=== PATIENT | female | born 1970 | race Caucasian/White ===

== ENCOUNTER → 2020-07-21 | Day surgery (SDC) | payer BC ==
[~2020-07-21] MED LIST: BARIATRIC MV-I1 EACH PO; BIOTIN10000 MCG PO; CALCET TABLET1 EACH PO; FENTANYL CITRATE/PF 100MCG/2 ML INJ ONE; FERROUS FUMARA324 MG PO; LIDOCAINE HCL 2% LOCAL INJ 5 ML SDV VIAL INJ ONE; METOCLOPRAMIDE HCL 10 MG/2ML VIAL ONE; MIDAZOLAM HCL 2 MG/2 ML VIAL ONE; NEXIUM40 MG PO; PANTOPRAZOLE 40 MG 10ML VIAL ONE; PEPCID20 MG PO; PROPOFOL IV EMULSION 10 MG/ML 20 ML VIAL ONE; SODIUM CHLORIDE 0.9% 50ML 50 ML ONE; VITAMIN B-121000 MC2 SL; VITAMIN C1000 M2 PO; VITAMIN C1000 MG PEG
[2020-07-21 09:50] VITALS: BP 118/91
--- NOTE | 2020-07-21 10:53 | Operative Report ---
DATE OF PROCEDURE: 07/21/2020 SURGEON: Felix Meraz MD PROCEDURE: EGD with biopsies. INDICATIONS FOR PROCEDURE: Acid reflux, bloating. MEDICATIONS: The patient was done under MAC, please see anesthesiologist's note. PROCEDURE IN DETAIL: With the patient in left lateral decubitus position, a flexible fiberoptic Olympus gastroscope was introduced into the esophagus under direct visualization without any difficulty. There was some patchy erythema noted in distal esophagus. The scope was then advanced with ease into the stomach and the patient appears to be status post gastric sleeve. There were some diffuse erythema and moderate edema noted in the body and antrum, and biopsies were obtained and sent to stain for H. pylori. Pylorus was of normal contour and shape, it was intubated with ease and the scope was advanced all the way to the second portion of the duodenum. Biopsies were obtained from the proximal second portion and the duodenal bulb to rule out sprue. The scope was then withdrawn back into the stomach and retroflexed, and some postoperative changes were noted. The scope was then straightened out, it was subsequently withdrawn. The patient tolerated the procedure well. IMPRESSION: 1. Distal esophagitis, mild. 2. Status post gastric sleeve. 3. Gastritis, biopsied, biopsies sent to stain for H. pylori. 4. Rule out sprue. PLAN: 1. Followup histology. 2. Continue Nexium 40 mg one p.o. a.c. b.i.d., add Carafate 1 g p.o. a.c. t.i.d. and at bedtime. Felix Meraz MD [facility] [place] [place] /[id number] cc: Denis Lee DO
== END | disposition home or self-care (01) ==
LOC: OR 08:08
PROVIDERS: ATTEND Internal Medicine Gastroenterology
DX: K21.9 Gastro-esophageal reflux disease without esophagitis (principal); K29.70 Gastritis, unspecified, without bleeding; K20.9 Esophagitis, unspecified; K44.9 Diaphragmatic hernia without obstruction or gangrene; Z98.84 Bariatric surgery status; E78.5 Hyperlipidemia, unspecified; F41.9 Anxiety disorder, unspecified; Z01.810 Encounter for preprocedural cardiovascular examination; Z01.812 Encounter for preprocedural laboratory examination; Z11.59 Encounter for screening for other viral diseases; Z68.30 Body mass index [BMI] 30.0-30.9, adult
CPT/HCPCS: 43239; 81025; C9113; J2001; J2250; J2704; J2765; J3010; U0002

== ENCOUNTER → 2022-05-24 | Day surgery (SDC) | payer BC ==
[~2022-05-24] MED LIST changes: +B12 ACTIVE1000 MCG; +GLUCAGON FOR INJ 1 MG VIAL ONE; +HYOSCYAMINE SULFATE 0.5 MG/ML INJ ONE; -METOCLOPRAMIDE HCL 10 MG/2ML VIAL ONE; -PANTOPRAZOLE 40 MG 10ML VIAL ONE; -SODIUM CHLORIDE 0.9% 50ML 50 ML ONE
[2022-05-24 19:05] VITALS: BP 119/76
== END | disposition home or self-care (01) ==
LOC: OR 01:50
PROVIDERS: ATTEND Internal Medicine Gastroenterology
DX: Z12.11 Encounter for screening for malignant neoplasm of colon (principal); K63.5 Polyp of colon; K64.8 Other hemorrhoids; K21.9 Gastro-esophageal reflux disease without esophagitis; Z71.3 Dietary counseling and surveillance; Z98.84 Bariatric surgery status; E03.9 Hypothyroidism, unspecified; R06.02 Shortness of breath; F41.9 Anxiety disorder, unspecified; Z01.810 Encounter for preprocedural cardiovascular examination; Z01.812 Encounter for preprocedural laboratory examination; Z20.822 Contact with and (suspected) exposure to COVID-19; Z68.31 Body mass index [BMI] 31.0-31.9, adult; Z86.16 Personal history of COVID-19
CPT/HCPCS: 0223U; 36415; 45378; 81025; 93005; J1610; J1980; J2001; J2250; J3010

== ENCOUNTER → 2022-08-06 | Outpatient (CLI) | payer BC ==
[~2022-08-06] MED LIST changes: -B12 ACTIVE1000 MCG; +B12 ACTIVE1000 MCG PO; +CENTRUM SILVER1 EAC5 PO; -FENTANYL CITRATE/PF 100MCG/2 ML INJ ONE; +GARLIQUE PO; -GLUCAGON FOR INJ 1 MG VIAL ONE; -HYOSCYAMINE SULFATE 0.5 MG/ML INJ ONE; +IOPAMIDOL 370 MG/ML 100 ML INFUS..BTL INJ ONE; -LIDOCAINE HCL 2% LOCAL INJ 5 ML SDV VIAL INJ ONE; -MIDAZOLAM HCL 2 MG/2 ML VIAL ONE; +POTASSIUM GLUCO90 MG PO; -PROPOFOL IV EMULSION 10 MG/ML 20 ML VIAL ONE; +SUCRALFATE1 GM PO; +TURMERIC500 M1 PO; +VITAMIN B-121000 MCG PO; +VITAMIN D3 COM1 EACH PO; +VITAMIN E400 UNI1 PO; +ZINC PO
== END ==
LOC: CT 08:05
PROVIDERS: ATTEND Internal Medicine Gastroenterology
DX: R22.1 Localized swelling, mass and lump, neck (principal); R10.10 Upper abdominal pain, unspecified; K21.9 Gastro-esophageal reflux disease without esophagitis; K92.1 Melena; K29.60 Other gastritis without bleeding; R19.8 Other specified symptoms and signs involving the digestive system and abdomen
CPT/HCPCS: 70491; 76700; Q9967

== ENCOUNTER → 2022-08-11 | Day surgery (SDC) | payer BC ==
[~2022-08-11] MED LIST changes: -IOPAMIDOL 370 MG/ML 100 ML INFUS..BTL INJ ONE; +LIDOCAINE HCL 2% LOCAL INJ 5 ML SDV VIAL INJ ONE; +PROPOFOL IV EMULSION 10 MG/ML 20 ML VIAL ONE
[2022-08-11 15:11] VITALS: BP 128/86
== END | disposition home or self-care (01) ==
LOC: OR 11:30
PROVIDERS: ATTEND Internal Medicine Gastroenterology
DX: K21.9 Gastro-esophageal reflux disease without esophagitis (principal); K29.60 Other gastritis without bleeding; Z98.84 Bariatric surgery status; R13.10 Dysphagia, unspecified; R19.7 Diarrhea, unspecified; Z71.3 Dietary counseling and surveillance; E03.9 Hypothyroidism, unspecified; E66.9 Obesity, unspecified; R22.1 Localized swelling, mass and lump, neck; Z68.31 Body mass index [BMI] 31.0-31.9, adult; Z86.16 Personal history of COVID-19
CPT/HCPCS: 43239; 43450; 81025; C9113; J2001; J2704; 43235

== ENCOUNTER → 2022-11-29 | Day surgery (SDC) | payer BC ==
[2022-11-25 09:12] LABS: BASOPHILS # (AUTO) 0.1 (0.0-0.1); BASOPHILS % 0.9 % (0.0-1.0); EOSINOPHILS # (AUTO) 0.2 (0.0-0.4); EOSINOPHILS % 3.6 % (0.0-6.0); HEMATOCRIT 43.4 % (34.2-44.1); HEMOGLOBIN 13.8 g/dL (12.0-16.0); LYMPHOCYTES # (AUTO) 1.8 (1.0-3.2); LYMPHOCYTES % 26.5 % (18.0-39.1); MEAN CORPUSCULAR HEMOGLOBIN 32.9 pg (28-32); MEAN CORPUSCULAR HGB CONC 31.8 g/dL (31-35); MEAN CORPUSCULAR VOLUME 103.3 fL (81-99); MONOCYTES # (AUTO) 0.8 (0.2-0.8); MONOCYTES % 11.8 % (4.4-11.3); NEUTROPHILS # (AUTO) 3.8 (2.1-6.9); PLATELET COUNT 271 x10e3/uL (140-360); RED CELL DISTRIBUTION WIDTH 12.6 % (11.7-14.4)
[2022-11-25 09:36] LABS: ALBUMIN 3.8 g/dL (3.5-5.0); ALBUMIN/GLOBULIN RATIO 1.2 (0.8-2.0); ANION GAP 15.2 mmol/L (8-16); CALCIUM 9.2 mg/dL (8.4-10.2); CREATININE, SERUM 0.8 mg/dL (0.57-1.11); POTASSIUM 4.2 mmol/L (3.5-5.1)
[~2022-11-29] MED LIST changes: +BUPIVACAINE HCL 0.5% INJ 30 ML VIAL INJ ONE; +DEXAMETHASONE SOD PHOS INJ 4 MG/ML SDV ONE; +EPHEDRINE SULFATE INJ 50 MG/ML VIAL ONE; +FENTANYL CITRATE/PF 100MCG/2 ML INJ ONE; +GLYCOPYRROLATE INJ 0.2 MG/ML VIAL ONE; +KETOROLAC TROMETHAMINE 30 MG/ML VIAL ONE; +MIDAZOLAM HCL 2 MG/2 ML VIAL ONE; +Morphine 10mg syringe 10 MG/ML INJ ONE; +NEOSTIGMINE 1 MG/ML 10ML VIAL ONE; +ONDANSETRON HCL INJ 2MG/ML 2ML 2 MG/ML VIAL ONE; +POVIDONE IODINE 0.05% 0.05 % ML PO ONE; +ROCURONIUM BROMIDE 10 MG/ML 5ML VIAL IV ONE; +VITAMIN D330 ML PO
[2022-11-29 12:35] VITALS: BP 109/67
== END | disposition home or self-care (01) ==
LOC: OR 08:04
PROVIDERS: ATTEND Surgery
DX: K80.10 Calculus of gallbladder with chronic cholecystitis without obstruction (principal); I10 Essential (primary) hypertension; K21.9 Gastro-esophageal reflux disease without esophagitis; Z20.822 Contact with and (suspected) exposure to COVID-19; Z01.810 Encounter for preprocedural cardiovascular examination; Z01.812 Encounter for preprocedural laboratory examination
CPT/HCPCS: 0223U; 36415 ×2; 47562; 80053; 81025; 85025; 88304; 93005; C1766; J0690; J1100; J1885; J2001; J2250; J2270; J2405; J2704; J2710; J3010

== ENCOUNTER → 2024-05-28 | Day surgery (SDC) | payer BC ==
[~2024-05-28] MED LIST changes: +ALIGN4 MG PO; -BUPIVACAINE HCL 0.5% INJ 30 ML VIAL INJ ONE; +COLESTIPOL HCL1 GM PO; -DEXAMETHASONE SOD PHOS INJ 4 MG/ML SDV ONE; -EPHEDRINE SULFATE INJ 50 MG/ML VIAL ONE; -FENTANYL CITRATE/PF 100MCG/2 ML INJ ONE; -GLYCOPYRROLATE INJ 0.2 MG/ML VIAL ONE; -KETOROLAC TROMETHAMINE 30 MG/ML VIAL ONE; -MIDAZOLAM HCL 2 MG/2 ML VIAL ONE; -Morphine 10mg syringe 10 MG/ML INJ ONE; -NEOSTIGMINE 1 MG/ML 10ML VIAL ONE; -ONDANSETRON HCL INJ 2MG/ML 2ML 2 MG/ML VIAL ONE; -POVIDONE IODINE 0.05% 0.05 % ML PO ONE; +PREMPRO 0.45-11 EACH PO; -ROCURONIUM BROMIDE 10 MG/ML 5ML VIAL IV ONE
[2024-05-28] MEDS: LACTATED RINGER'S 1,000 ML ONE (13:55)
[2024-05-28 15:10] VITALS: TEMP 97.6
[2024-05-28 15:40] VITALS: BP 110/70; PULSE 68; RESP 16; O2SAT 98
== END | disposition home or self-care (01) ==
LOC: OR 12:55
PROVIDERS: ATTEND Internal Medicine Gastroenterology
DX: Z09 Encounter for follow-up examination after completed treatment for conditions other than malignant neoplasm (principal); D12.3 Benign neoplasm of transverse colon; K63.89 Other specified diseases of intestine; R19.7 Diarrhea, unspecified; K64.8 Other hemorrhoids; Z71.3 Dietary counseling and surveillance; E03.9 Hypothyroidism, unspecified; Z01.810 Encounter for preprocedural cardiovascular examination; Z68.31 Body mass index [BMI] 31.0-31.9, adult; Z86.16 Personal history of COVID-19
CPT/HCPCS: 36415; 45385; 84702; 93005; J2001; J2704; J7121; 45378